=== PATIENT | female | born 1950 | race Caucasian/White ===

== ENCOUNTER 2018-01-23 12:00 | Inpatient (IN) | payer OTHER ==
[~2018-01-23] VITALS: Ht 154.9 cm; Wt 72.1 kg
[2018-01-23] MEDS ORDERED: ESCITALOPRAM OXA5 MG PO (12:48)
[2018-01-23] MEDS ORDERED: VASOTEC5 MG PO (12:49)
[2018-01-23] MEDS ORDERED: FERRETTS325 MG PO (12:50)
[2018-01-23] MEDS ORDERED: FOLIC ACID1 MG PO (12:50)
[2018-01-23] MEDS ORDERED: CLONAZEPAM0.5 MG PO (12:50)
[2018-01-23] MEDS ORDERED: B-121000 MC2 SL (12:51)
[2018-01-23] MEDS ORDERED: GALANTAMINE HBR24 MG PO (12:51)
[2018-01-23] MEDS ORDERED: SIMVASTATIN40 MG PO (12:52)
== END 2018-01-30 14:02 | disposition home or self-care (01) | DRG 331 ==
LOC: SURH 01-26 08:22 → O/R 01-26 08:22 → SURH 01-26 09:00 → MEDI 01-26 17:52 → SURH 01-26 17:52
PROVIDERS: Colon & Rectal Surgery
PROC: 07TC4ZZ Resection of Pelvis Lymphatic, Percutaneous Endoscopic Approach (ICD-10-PCS; 2018-01-26)
PROC: 0WQF4ZZ Repair Abdominal Wall, Percutaneous Endoscopic Approach (ICD-10-PCS; 2018-01-26)
PROC: 4A033R1 Measurement of Arterial Saturation, Peripheral, Percutaneous Approach (ICD-10-PCS; 2018-01-26)
PROC: 4A12X4Z Monitoring of Cardiac Electrical Activity, External Approach (ICD-10-PCS; 2018-01-26)
PROC: 0DTF4ZZ Resection of Right Large Intestine, Percutaneous Endoscopic Approach (ICD-10-PCS; principal; 2018-01-26 09:00)
DX: C18.2 Malignant neoplasm of ascending colon (principal); K43.9 Ventral hernia without obstruction or gangrene; R59.0 Localized enlarged lymph nodes; G47.33 Obstructive sleep apnea (adult) (pediatric); I10 Essential (primary) hypertension; R73.01 Impaired fasting glucose; F03.90 Unspecified dementia, unspecified severity, without behavioral disturbance, psychotic disturbance, mood disturbance, and anxiety; D50.0 Iron deficiency anemia secondary to blood loss (chronic); Z78.1 Physical restraint status

== ENCOUNTER 2018-01-24 08:25 | Outpatient (CLI) | payer OTHER ==
[~2018-01-24 08:25] MED LIST: B-121000 MC2 SL; CLONAZEPAM0.5 MG PO; ESCITALOPRAM OXA5 MG PO; FERRETTS325 MG PO; FOLIC ACID1 MG PO; GALANTAMINE HBR24 MG PO; SIMVASTATIN40 MG PO; VASOTEC5 MG PO
== END 2018-01-24 08:35 | disposition home or self-care (01) ==
LOC: NUCLEAR 08:25
DX: I82.509 Chronic embolism and thrombosis of unspecified deep veins of unspecified lower extremity (principal)